=== PATIENT | female | born 1945 | race Caucasian/White ===

== ENCOUNTER → 2019-02-12 | Outpatient (CLI) | payer MEDICARE ==
--- NOTE | 2019-02-12 11:51 | US ---
EXAMINATION TYPE: US venous doppler duplex LE LT DATE OF EXAM: 02/12/2019 11:40 AM COMPARISON: NONE CLINICAL HISTORY: M25.562 LT KNEE PAIN,M17.12 OA LT KNEE,M79.662. SIDE PERFORMED: Left TECHNIQUE: The lower extremity deep venous system is examined utilizing real time linear array sonog simon with graded compression, doppler sonography and color-flow sonography. VESSELS IMAGED: External Iliac Vein (EIV) Common Femoral Vein Deep Femoral Vein Greater Saphenous Vein * Femoral Vein Popliteal Vein Small Saphenous Vein * Proximal Calf Veins (* superficial vessels) Grayscale, color doppler, spectral doppler imaging performed of the deep veins of the left lower extr emity. There is normal flow, compressibility, vascular waveforms. Left Leg: Negative for DVT Probable marcelino's cyst visualized measuring 2.0 x 0.7 x 1.1 cm IMPRESSION: No sonographic evidence of deep venous thrombosis within the left lower extremity. Incid ental moderate popliteal cyst.
== END | disposition home or self-care (01) ==
LOC: RADUSWWP 11:23
PROVIDERS: ATTEND Orthopaedic Surgery
DX: M71.22 Synovial cyst of popliteal space [Baker], left knee (principal); M17.12 Unilateral primary osteoarthritis, left knee

== ENCOUNTER → 2019-02-17 | Outpatient (CLI) | payer MEDICARE ==
--- NOTE | 2019-02-17 14:19 | US ---
EXAMINATION TYPE: US venous doppler duplex LE LT DATE OF EXAM: 02/17/2019 2:04 PM COMPARISON: US 02/12/19 CLINICAL HISTORY: I80.9 Phlebitis and thrombophlebitis LLE. Bruise left calf SIDE PERFORMED: Left TECHNIQUE: The lower extremity deep venous system is examined utilizing real time linear array sonog simon with graded compression, doppler sonography and color-flow sonography. VESSELS IMAGED: External Iliac Vein (EIV) Common Femoral Vein Deep Femoral Vein Greater Saphenous Vein * Femoral Vein Popliteal Vein Small Saphenous Vein * Proximal Calf Veins (* superficial vessels) Left Leg: Negative for DVT Probable marcelino's cyst visualized measuring 3.0 x 0.6 x 1.3 cm IMPRESSION: 1. No diagnostic evidence of DVT as visualized. 2. Popliteal fossa cyst measuring 3 cm. Correlate with MRI.
== END | disposition home or self-care (01) ==
LOC: RADUSWWP 13:39
PROVIDERS: ATTEND Orthopaedic Surgery
DX: M71.22 Synovial cyst of popliteal space [Baker], left knee (principal); M17.12 Unilateral primary osteoarthritis, left knee

== ENCOUNTER → 2021-09-28 | Outpatient (CLI) | payer MEDICARE ==
--- NOTE | 2021-09-28 16:13 | CT ---
EXAMINATION TYPE: CT chest wo con DATE OF EXAM: 09/28/2021 COMPARISON: Chest x-ray September 05, 2021 HISTORY: COPD CT DLP: 109.5 mGycm. Automated Exposure Control for Dose Reduction was Utilized. TECHNIQUE: CT scan of the thorax is performed without IV contrast. FINDINGS: LUNGS: Focal linear scarring and/or atelectasis in the lingula and mild linear scarring and/or atelec tasis in both bases just above diaphragm. There is no pleural effusion or pneumothorax seen. The tra cheobronchial tree is patent. MEDIASTINUM: Lack of IV contrast is noted to limit evaluation for mediastinal and especially hilar ad enopathy. There are no definitive greater than 1 cm mediastinal lymph nodes. There is pectus excavatu m deformity. Cardiomegaly is present. Cine aorta measures 3.0 cm at the root but enlarges up to 3.8 c m in the ascending aorta axial image 29. No aneurysm extension into the descending aorta. OTHER: Underlying Scoliosis is present. Mild height loss or chronic compression type fracture involvi ng the superior L1 vertebra. IMPRESSION: No underlying emphysematous change. No suspicious acute pulmonary process. Cardiomegaly i s confirmed. 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
--- NOTE | 2021-09-29 10:31 | ECHOF ---
Referral Reason:J44.9, I35.1 MEASUREMENTS -------- HEIGHT: 157.5 cm WEIGHT: 52.2 kg BP: 130/80 RVIDd: 3.2 cm (< 3.3) IVSd: 1.2 cm (0.6 - 1.1) LVIDd: 4.0 cm (3.9 - 5.3) LVPWd: 1.2 cm (0.6 - 1.1) IVSs: 1.5 cm LVIDs: 3.1 cm LVPWs: 1.7 cm LA Diam: 3.4 cm (2.7 - 3.8) Ao Diam: 3.0 cm (2.0 - 3.7) AV Cusp: 1.9 cm (1.5 - 2.6) MV EXCURSION: 13.059 mm (> 18.000) MV EF SLOPE: 58 mm/s (70 - 150) EPSS: 0.7 cm MV E Huseyin: 0.56 m/s MV DecT: 512 ms MV A Huseyin: 0.71 m/s MV E/A Ratio: 0.79 AR PHT: 560 ms RAP: 5.00 mmHg RVSP: 28.15 mmHg FINDINGS -------- Sinus rhythm. This was a technically adequate study. The left ventricular size is normal. There is borderline concentric left ventricular hypertrophy. Overall left ventricular systolic function is normal with, an EF between 55 - 60 %. The right ventricle is normal in size. The left atrium is normal in size. The right atrium is normal in size. Interatrial and interventricular septum intact. There is mild aortic regurgitation. The mitral valve is normal. Mild tricuspid regurgitation present. Right ventricular systolic pressure is normal at < 35 mmHg. The pulmonic valve was not well visualized. The aortic root size is normal. Normal inferior vena cava with normal inspiratory collapse consistent with estimated right atrial pre ssure of 5 mmHg. There is no pericardial effusion. CONCLUSIONS -------- 1. The left ventricular size is normal. 2. There is borderline concentric left ventricular hypertrophy. 3. Overall left ventricular systolic function is normal with, an EF between 55 - 60 %. 4. There is mild aortic regurgitation. 5. Mild tricuspid regurgitation present. 6. There is no pericardial effusion. MANAGER RELOCATION: Grace Napier RD
== END | disposition home or self-care (01) ==
LOC: RADECHMAIN 15:05
PROVIDERS: ATTEND Internal Medicine
DX: I08.2 Rheumatic disorders of both aortic and tricuspid valves (principal); M95.4 Acquired deformity of chest and rib; I71.2 Thoracic aortic aneurysm, without rupture
CPT/HCPCS: 71250; 93306

== ENCOUNTER → 2023-11-18 | Outpatient (CLI) | payer MEDICARE ==
--- NOTE | 2023-11-18 23:04 | XR ---
EXAMINATION TYPE: XR chest 2V DATE OF EXAM: 11/18/2023 COMPARISON: 09/05/2021 INDICATION: Pleurodynia TECHNIQUE: Frontal and lateral views of the chest are obtained. FINDINGS: The heart size is enlarged. The pulmonary vasculature is normal. The lungs are clear. IMPRESSION: 1. No acute pulmonary process. 2. Cardiomegaly
== END | disposition home or self-care (01) ==
LOC: RADXRMAIN 11:20
PROVIDERS: ATTEND Internal Medicine
DX: I51.7 Cardiomegaly (principal); R07.81 Pleurodynia
CPT/HCPCS: 71046

== ENCOUNTER → 2023-11-20 | Outpatient (CLI) | payer MEDICARE ==
--- NOTE | 2023-11-20 19:03 | US ---
EXAMINATION TYPE: US carotid duplex BILAT DATE OF EXAM: 11/20/2023 COMPARISON: NONE CLINICAL INDICATION: Female, 78 years old with history of I35.1 I65.23; Patient denies any signs or s ymptoms or relevant history TECHNIQUE: Carotid duplex ultrasound examination. Indirect Doppler criteria was utilized. FINDINGS: EXAM MEASUREMENTS: RIGHT: Peak Systolic Velocity (PSV) cm/sec ----- Right CCA: 61 ----- Right ICA: 69 ----- Right ECA: 58 ICA/CCA ratio: 1.1 RIGHT: End Diastole cm/sec ----- Right CCA: 10 ----- Right ICA: 18 ----- Right ECA: 0 LEFT: Peak Systolic Velocity (PSV) cm/sec ----- Left CCA: 47 ----- Left ICA: 91 ----- Left ECA: 50 ICA/CCA ratio: 2.0 LEFT: End Diastole cm/sec ----- Left CCA: 9 ----- Left ICA: 27 ----- Left ECA: 0 VERTEBRALS (direction of flow): Right Vertebral: Antegrade Left Vertebral: Antegrade Rhythm: Arrhythmia CENTRAL OFFICE TROUBLE SHOOTER NOTES: No plaque, intimal thickening, or elevated velocities noted IMPRESSION: Atheromatous plaquing without significant flow-limiting stenosis based on velocities. Criteria for Assigning % of Stenosis / Diameter reduction (Estimation based on the indirect measurements of the internal carotid artery velocities (ICA PSV). 1. Normal (no stenosis)=ICA PSV < 125 cm/s: ratio < 2.0: ICA EDV<40 cm/s. 2. Less than 50% stenosis=ICA PSV < 125 cm/s: ratio < 2.0: ICA EDV<40 cm/s. 3. 50 to 69% stenosis=ICA PSV of 125 to 230 cm/s: ration 2.0 ? 4.0: ICA EDV 40-100 cm/s. 4. Greater than 70% stenosis to near occlusion= ICA PSV > 230 cm/s: ratio > 4.0: ICA EDV > 100 cm/s. 5. Near occlusion= ICA PSV velocities may be low or undetectable: variable ratio and ICA EDV. 6. Total occlusion=unable to detect flow.
--- NOTE | 2023-11-21 12:10 | CA ---
Transthoracic Echo Report Name: Capri Foy Age: 78 Gender: F : 1945 Exam Date: 11/20/2023 13:03 Exam Location: [facility] Ht (in): 62 Wt (lb): 105 Ordering Physician: Ria Oliver MD Attending/Referring Phys: Ria Oliver MD Industrial Retrofit Designer Neeta Rodriguez RDCS Procedure CPT: Indications: I35.1 I65.23 Cardiac Hx: Technical Quality: Fair Contrast 1: Total Dose (mL): Contrast 2: Total Dose (mL): MEASUREMENTS (Male / Female) Normal Values 2D ECHO LV Diastolic Diameter PLAX 4.5 cm 4.2 - 5.9 / 3.9 - 5.3 cm LV Systolic Diameter PLAX 3.2 cm IVS Diastolic Thickness 1.5 cm 0.6 - 1.0 / 0.6 - 0.9 cm LVPW Diastolic Thickness 1.4 cm 0.6 - 1.0 / 0.6 - 0.9 cm LV Relative Wall Thickness 0.6 RV Internal Dim ED PLAX 3.2 cm LV Diastolic Volume MOD BP 86.9 cm??? 67 - 155 / 56 - 104 cm??? LV Systolic Volume MOD BP 55.7 cm??? 22 - 58 / 19 - 49 cm??? LV Ejection Fraction MOD BP 35.9 % >= 55 % LV Cardiac Index MOD BP 1494.2 cm???/min???m??? LV Diastolic Volume MOD 4C 97.7 cm??? LV Systolic Volume MOD 4C 59.2 cm??? LV Ejection Fraction MOD 4C 39.4 % LV Cardiac Index MOD 4C 1844.2 cm???/min???m??? LV Diastolic Length 4C 8.1 cm LV Systolic Length 4C 7.0 cm LV Diastolic Volume MOD 2C 64.9 cm??? LV Systolic Volume MOD 2C 50.2 cm??? LV Ejection Fraction MOD 2C 22.7 % LV Cardiac Index MOD 2C 705.8 cm???/min???m??? LV Diastolic Length 2C 6.6 cm LV Systolic Length 2C 6.6 cm LA Volume 66.2 cm??? 18 - 58 / 22 - 52 cm??? LA Volume Index 46.0 cm???/m??? 16 - 28 cm???/m??? M-MODE Aortic Root Diameter MM 2.7 cm LA Systolic Diameter MM 4.7 cm LA Ao Ratio MM 1.8 AV Cusp Separation MM 1.9 cm DOPPLER AV Peak Velocity 148.7 cm/s AV Peak Gradient 8.8 mmHg AV Mean Velocity 92.4 cm/s AV Mean Gradient 4.0 mmHg AV Velocity Time Integral 26.4 cm AI Peak Velocity 445.9 cm/s AI Peak Gradient 79.5 mmHg AI Pressure Half Time 472.0 ms LVOT Peak Velocity 107.9 cm/s LVOT Peak Gradient 4.7 mmHg LVOT Velocity Time Integral 19.6 cm MV Peak Velocity 90.3 cm/s MV Peak Gradient 3.3 mmHg MV Mean Velocity 56.2 cm/s MV Mean Gradient 1.4 mmHg MV Velocity Time Integral 23.1 cm MV Area PHT 1.9 cm??? Mitral E Point Velocity 42.5 cm/s Mitral A Point Velocity 61.8 cm/s Mitral E to A Ratio 0.7 MV Deceleration Time 395.9 ms MV E' Velocity 3.3 cm/s Mitral E to MV E' Ratio 12.9 TR Peak Velocity 243.1 cm/s TR Peak Gradient 23.6 mmHg Right Ventricular Systolic Press 28.5 mmHg FINDINGS Left Ventricle Moderately increased septal wall thickness. Moderately increased posterior wall thickness. Mildly increased left ventricular systolic volume. Moderately decreased left ventricular ejection fraction. Left ventricular ejection fraction is estimated at 40-45 %. Grade 1 diastolic dysfunction. Right Ventricle Normal right ventricular size and function. Right ventricular systolic pressure within normal limits. Right Atrium Normal right atrial size. Left Atrium Moderately increased left atrial volume. Mitral Valve Structurally normal mitral valve. Mitral valve thickened. Mild mitral annular calcification. [id number] mitral regurgitation. Aortic Valve Trileaflet aortic valve. No aortic stenosis. Mild aortic regurgitation. Tricuspid Valve Structurally normal tricuspid valve. Mild tricuspid regurgitation. Pulmonic Valve Structurally normal pulmonic valve. Pericardium No pericardial effusion. Aorta Normal size aortic root and proximal ascending aorta. CONCLUSIONS Moderate increased left ventricular wall thickness Left ventricular ejection fraction 40-45% Mild mitral calcification Mild to moderate mitral regurgitation Mild aortic regurgitation No pericardial effusion Previewed by: Dr. Daron Ward DO (Electronically Signed) Final Date: 21 November 2023 12:09
== END | disposition home or self-care (01) ==
LOC: RADECHMAIN 12:47
PROVIDERS: ATTEND Internal Medicine
DX: I35.1 Nonrheumatic aortic (valve) insufficiency (principal); I65.23 Occlusion and stenosis of bilateral carotid arteries; M85.851 Other specified disorders of bone density and structure, right thigh; Z12.31 Encounter for screening mammogram for malignant neoplasm of breast
CPT/HCPCS: 93306; 93880

== ENCOUNTER → 2023-12-02 | Outpatient (CLI) | payer MEDICARE ==
--- NOTE | 2023-12-05 07:22 | BD ---
EXAMINATION TYPE: Axial Bone Density DATE OF EXAM: 12/02/2023 CLINICAL HISTORY: 78 years old Female. ICD-10 CODE: OSTEOPENIA RT HIP M85.851 Height: 60.5 Weight: 108.6 FRAX RISK QUESTIONS: Alcohol (3 or more units per day): no Family History (Parent hip fracture): no Glucocorticoids (More than 3mos): no History of Fracture in Adulthood: no Secondary Osteoporosis: 1. Type 1 Diabetes: no 2. Hyperthyroidism: no 3. Menopause before 45: no 4. Malnutrition: no 5. Chronic liver disease: no Rheumatoid Arthritis: no Current Tobacco Use: no RISK FACTORS HISTORY OF: Hip Fracture (Right/Left): no Spine Fracture: no History of Wrist Fracture: no Surgery to Spine/Hip(right/left)/Wrist (right/left): no MEDICATIONS: Thyroid Medications: no Osteoporosis Medications: no EXAM MEASUREMENTS: Bone mineral densitometry was performed using the [employer] System. Bone mineral density as measured about the Lumbar spine is: ----- L1-L4(G/cm2): 0.685 T Score Values are as follows: ----- L1: -3.8 ----- L2: -4.6 ----- L3: -4.2 ----- L4: -4.0 ----- L1-L4: -4.1 Z Score Values are as follows: ----- L1: -0.7 ----- L2: -1.4 ----- L3: -1.1 ----- L4: -0.8 ----- L1-L4: -1.0 Baseline Study Bone mineral density about the R hip (g/cm2): 0.670 Bone mineral density about the L hip (g/cm2): 0.572 T Score values are as follows: -----R Neck: -2.1 -----L Neck: -3.1 -----R Total: -2.7 -----L Total: -3.5 Z Score values are as follows: -----R Neck: 0.8 -----L Neck: -0.2 -----R Total: 0.2 -----L Total: -0.6 Baseline Study FRAX%s: The graph provided illustrates a 9.3% chance for a major osteoporotic fx and a 4.6% chance fo r the hips probability for fx in 10 years time. IMPRESSION: Osteoporosis (T Score less than -2.5). There is increased fracture risk and therapy is usually indicated based on age. Re-Screen 1-2 years. NOTE: T-SCORE=SD OF THE YOUNG ADULT MEAN.
--- NOTE | 2023-12-05 18:36 | MM ---
Reason for Exam: Screening (asymptomatic). Patient History: Menarche at age 12. First Full-Term at age 21. Postmenopausal. Risk Values: Estephania 5 year model risk: 1.5%. NCI Lifetime model risk: 2.8%. Prior Study Comparison: No prior studies available for comparison. Tissue Density: The breasts are heterogeneously dense, which may obscure small masses. Findings: Analyzed By CAD. On the right, nodularity at the 9 to 10:00 position at a middle depth. Further evaluation recommended. This may represent an intramammary lymph node. On the left, a couple areas of focal asymmetry upper outer quadrant anterior middle depth. These may represent superimposition shadow but further evaluation is recommended. No suspicious calcification or other discrete abnormality is seen. Overall Assessment: Incomplete: need additional imaging evaluation, BI-RAD 0 Management: Special View Mammogram of both breasts. Diagnostic Breast Ultrasound of both breasts. [facility] will attempt to contact patient to return for supplemental views and ultrasound if indicated. Electronically signed and approved by: Ruel Hardy M.D. Radiologist
== END | disposition home or self-care (01) ==
LOC: RADMAMWWP 14:24
PROVIDERS: ATTEND Internal Medicine
DX: Z12.31 Encounter for screening mammogram for malignant neoplasm of breast (principal); M85.851 Other specified disorders of bone density and structure, right thigh; M81.0 Age-related osteoporosis without current pathological fracture; Z78.0 Asymptomatic menopausal state
CPT/HCPCS: 77063; 77067; 77080

== ENCOUNTER → 2024-02-13 | Outpatient (CLI) | payer MEDICARE ==
--- NOTE | 2024-02-13 11:35 | US ---
EXAMINATION TYPE: US pelvic complete DATE OF EXAM: 02/13/2024 COMPARISON: NONE CLINICAL INDICATION: Female, 78 years old with history of N89.8 Vaginal discharge; Vaginal discharge since June. Hx tubal ligation. 2 C sections. . TECHNIQUE: Transabdominal (TA). Transabdominal sonographic images of the pelvis were acquired. Tra nsvaginal sonographic images were not performed, patient did not want to do TV exam. Date of LMP: Unknown per patient. EXAM MEASUREMENTS: Uterus: 7.4 x 4.7 x 2.1 cm Endometrial Stripe: 0.33 cm Right Ovary: Not seen Left Ovary: Not seen 1. Uterus: Anteverted Many hyperechoic calcified-appearing areas seen throughout, largest measur es: 0.6 x 0.6 x 0.4 cm. -Anechoic area seen lower uterus: 0.8 x 0.6 x 0.5 cm. 2. Endometrium: Fluid seen within measurin.4 x 0.7 x 0.2 cm. 3. Right Ovary: Not seen 4. Left Ovary: Not seen 5. Bilateral Adnexa: Appear wnl 6. Posterior cul-de-sac: Minimal fluid seen within. Internal echoes were seen within the urinary bladder. IMPRESSION: 1. Multiple small hyperechoic foci within the uterus most likely representing scattered fibrotic matta ges. 2. Endometrial stripe 3.3 mm which is in normal limits for this patient's age. 3. Fluid within the endometrium. 4. Ovaries not visualized and no adnexal masses. 5.mildly complex fluid in the urinary bladder. 6. Given the presence of a vaginal discharge, MRI of the pelvis might be useful for further evaluatio n.
--- NOTE | 2024-02-13 11:40 | US ---
EXAMINATION TYPE: US abdomen complete DATE OF EXAM: 02/13/2024 COMPARISON: NONE CLINICAL INDICATION: Female, 78 years old with history of N89.8 VAG DISCHARGE R10.9 ABD PAIN; Abdomin al pain per order. Patient feels firmness within abdomen. TECHNIQUE: Multiple sonographic images of the abdomen are obtained. FINDINGS: EXAM MEASUREMENTS: Liver Length: 12.0 cm Gallbladder Wall: 0.2 cm CBD: 0.4 cm Spleen: 8.7 cm Right Kidney: 9.6 x 5.6 x 3.6 cm Left Kidney: 10.6 x 4.5 x 4.6 cm MULTIMEDIA TEACHER NOTES: Exam is limited due to gas. Pancreas: Limited visibility. Liver: Appears coarse with increased echogenicity. Gallbladder: *Echogenic material seen within the gallbladder: 0.6 x 2.1 x 0.5 cm Evidence for sonographic Greco's sign: No CBD: Appears wnl Spleen: Appears wnl Right Kidney: No hydronephrosis or masses seen Left Kidney: Anechoic appearance of dilated collecting system. *Anechoic area seen upper-mid pole measuring 1.2 x 1.1 x 0.7 cm. Upper IVC: Appears wnl Abd Aorta: Portions seen appear wnl. Iliac arteries were obscured. IMPRESSION: 1. Exam limited due to bowel gas. Pancreas not visualized. 2. No focal or mass or hepatomegaly. 3. Mild gallbladder sludge. Negative sonographic Greco sign. No biliary ductal dilatation
== END | disposition home or self-care (01) ==
LOC: RADUSWWP 08:18
PROVIDERS: ATTEND Internal Medicine
DX: N89.8 Other specified noninflammatory disorders of vagina (principal); R14.3 Flatulence; K82.8 Other specified diseases of gallbladder
CPT/HCPCS: 76700; 76856